=== PATIENT | female | born 1990 | race Caucasian/White ===

== ENCOUNTER 2024-04-06 09:26 | Outpatient (CLI) | payer OTHER, SELFPAY ==
[2024-04-10 05:49] LABS: HPV Source Cervix; HPV, High Risk by TMA Not Detected
== END 2024-04-06 09:27 | disposition home or self-care (01) ==
PROVIDERS: Visit Provider Physician Assistant
DX: Z13.1 Encounter for screening for diabetes mellitus (principal); Z13.6 Encounter for screening for cardiovascular disorders; Z11.3 Encounter for screening for infections with a predominantly sexual mode of transmission; Z12.4 Encounter for screening for malignant neoplasm of cervix; Z11.51 Encounter for screening for human papillomavirus (HPV)
CPT/HCPCS: 80061; 82947; 87624; 87625; 88141; 88142

== ENCOUNTER 2025-01-01 07:12 | Outpatient (CLI) | payer OTHER, SELFPAY ==
--- NOTE | 2025-01-01 07:15 | CRLHL7_ITS ---
For Patients: As a result of the Century Cures Act, medical imaging exams and procedure reports are released immediately into your electronic medical record. You may view this report before your referring provider. If you have questions, please contact your health care provider. CLINICAL HISTORY: Pelvic pain TECHNIQUE: Real time, simeon scale images were acquired of the pelvis using a transabdominal and transvaginal approach. Color Doppler analysis was performed of the ovaries. FINDINGS: The uterus measures 8.1 x 3.6 x 4.8 centimeters. Endometrium measures 7 millimeters. Ovaries are unremarkable. Right ovary measures 3.2 x 2.3 x 2.2 Left ovary measures 3.4 x 2.3 x 2 centimeters Complex left ovarian lesion measuring 1.6 centimeters probably reflecting a corpus luteum cyst. Normal blood flow to both ovaries. IMPRESSION: 1. Probable corpus luteum cyst on the left. Normal blood flow to both ovaries. Dictated by Inés Delarosa MD @ 01/04/2025 7:15:35 AM (Electronically Signed)
== END 2025-01-01 07:13 | disposition home or self-care (01) ==
LOC: US 07:13
PROVIDERS: Visit Provider Physician Assistant
DX: R10.20 Pelvic and perineal pain unspecified side (principal)
CPT/HCPCS: 76830; 76856; 93976